=== PATIENT | female | born 2000 | race American Indian/Alaskan Native ===

== ENCOUNTER 2020-10-30 20:47 | Inpatient (IN) | payer BC, MEDICAID ==
--- NOTE | 2020-10-30 22:13 | History and Physical Report ---
History of Present Illness Date of examination: 10/30/20 Date of admission: 10/30/2020 Chief complaint: IOL for IUGR; del. recommended between 38-39 weeks by [facility] consultation History of present illness: EDC Confirmation: 11/08/2020 38+5 weeks today Past History : 1 Term Births: 0 Premature Births: 0 Living Children: 0 Para: 0 Mult. Births: 0 Prev : 0 Prev. attempt? 0 Aborta: 0 Elect. Ab: 0 Spont. Ab: 0 Ectopics: 0 Past Medical History: Negative Past Medical History Past Surgical History: negative Past Medical History Anesthesia Complications: negative Anemia: negative Autoimmune Disorder: negative Bleeding Disorder: negative Blood Transfusions: negative Breast Disease: negative Diabetes: negative Heart Disease: negative Hypertension: negative Hepatitis/Liver Disease: negative Kidney Disease/UTI: negative Neurologic/Epilepsy/Migraines: negative Phlebitis/Varicosities: negative Psychiatric: negative Pulmonary Disease/Asthma: negative Thyroid Disease: negative Hospitalizations: negative 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 of genital herpes: no Partner hx. of genital herpes: no Rash, Viral, or Febrile illness since last LMP? no Varicella/Chicken Pox Status: Previous Disease Genetic History Congenital Heart Defect: Mom: no Dad: no Edwar Disease: Mom: no Dad: no Thalassemia Mom: no Dad: no Neural Tube Defect Mom: no Dad: no Down's Syndrome Mom: no Dad: no Zack-Sachs Mom: no Dad: no Sickle Cell Disease/Trait Mom: no Dad: no Hemophilia Mom: no Dad: no Muscular Dystrophy Mom: no Dad: no Cystic Fibrosis Mom: no Dad: no [place] Chorea Mom: no Dad: no Mental Retardation Mom: no Dad: no Fragile X Mom: no Dad: no Other Genetic/Chromosomal Disorder Mom: no Dad: no Child w/other defect Mom: no Dad: no Enviromental Exposures Xray Exposure: no Medication, drug, or alcohol use since LMP: no Chemical/Other Exposure: no Exposure to Cat Liter: no Hx of Parvovirus (Fifth Disease): no Occupational Exposure to Children: none Active Medications: None Current Allergies (reviewed today): AMOXICILLIN (Critical) Past History Past Medical History: no pertinent history Past Surgical History: no surgical history [employer] History: trichomonas Family/Genetic History: other (see HPI) Social history: single, other (see HPI) - Obstetrical History Expected Date of Delivery: 11/08/20 Actual Gestation: 38 Week(s) 5 Day(s) : 1 Para: 0 Hx # Term Pregnancies: 0 Number of Pregnancies: 0 Spontaneous Abortions: 0 Induced : 0 Number of Living Children: 0 Medications and Allergies Allergies Allergy/AdvReac Type Severity Reaction Status Date / Time amoxicillin Allergy Severe Anaphylaxis Verified 10/30/20 22:12 Review of Systems All systems: negative Integumentary: other (scars on legs; pt reports old wounds from early in that have healed) - Vital Signs Vital signs: Vital Signs Pulse Pulse Ox 98 H 99 10/30/20 21:37 10/30/20 21:37 Temp Pulse Resp BP Pulse Ox 98.3 F 83 18 129/78 99 10/30/20 21:39 10/30/20 22:02 10/30/20 21:39 10/30/20 21:39 10/30/20 22:02 - Physical Exam Breasts: Positive: deferred Cardiovascular: Regular rate Lungs: Positive: Normal air movement Abdomen: Positive: normal appearance, soft Genitourinary (Female): Positive: normal external genitalia, normal perenium Vulva: both: normal Vagina: Positive: normal moisture Uterus: Positive: normal contour Anus/Rectum: Positive: normal perianal skin Extremities: Positive: normal - Obstetrical FHR: auscultation normal, category 1 Uterine Contraction Monitor Mode: Palpation Uterine Contraction Pattern: Absent Uterine Tone Measurement Phase: Resting Results All other labs normal. GBS NEGATIVE on 10/07/20 GC/CT/TRICH NEGATIVE on 10/28/20 Tests: (1) Profile I ([id number]) on 05/01/2020 Order Note: Clinical Information: [id number] LM HBsAg Screen Negative Negative *1 RPR Non Reactive Non Reactive *2 Rubella Antibodies, IgG 3.02 index Immune >0.99 *3 Non-immune <0.90 Equivocal 0.90 - 0.99 Immune >0.99 ABO Grouping B *4 Rh Factor Positive *5 Please note: Prior records for this patient's ABO / Rh type are not available for additional verification. Antibody Screen Negative Negative *6 WBC 6.4 x10E3/uL 3.4-10.8 *7 RBC 4.01 x10E6/uL 3.77-5.28 *8 Hemoglobin [L] 11.0 g/dL 11.1-15.9 *9 Hematocrit [L] 33.0 % 34.0-46.6 *10 MCV 82 fL 79-97 *11 MCH 27.4 pg 26.6-33.0 *12 MCHC 33.3 g/dL 31.5-35.7 *13 RDW 13.2 % 11.7-15.4 *14 Platelets 217 x10E3/uL 150-450 *15 Neutrophils 70 % Not Estab. *16 Lymphs 23 % Not Estab. *17 Monocytes 7 % Not Estab. *18 Eos 0 % Not Estab. *19 Basos 0 % Not Estab. *20 ! Immature Cells <No Reported Value> *21 Neutrophils (Absolute) 4.5 x10E3/uL 1.4-7.0 *22 Lymphs (Absolute) 1.5 x10E3/uL 0.7-3.1 *23 Monocytes(Absolute) 0.4 x10E3/uL 0.1-0.9 *24 Eos (Absolute) 0.0 x10E3/uL 0.0-0.4 *25 Baso (Absolute) 0.0 x10E3/uL 0.0-0.2 *26 ! Immature Granulocytes 0 % Not Estab. *27 ! Immature Grans (Abs) 0.0 x10E3/uL 0.0-0.1 *28 ! NRBC <No Reported Value> *29 Hematology Comments: <No Reported Value> *30 Tests: (2) 016486 7+Alc-Unbund ([id number]) ! Amphetamines, Urine Negative ng/mL Uonnut=0353 *31 Amphetamine test includes Amphetamine and Methamphetamine. Barbiturate Negative ng/mL Grarjr=127 *32 Benzodiazepines Negative ng/mL Wwetde=024 *33 Cannabinoid See Final Results ng/mL Cutoff=50 *34 Tests: (3) Cannabinoid Confirmation, Ur ([id number]) ! Cannabinoid [A] Positive Cutoff=50 *35 ! Carboxy THC GC/MS Conf 24 ng/mL Cutoff=15 *36 Tests: (4) 870771 7+Alc-Unbund (698130) ! Cocaine (Metab.) Negative ng/mL Mmefcc=936 *37 Opiates Negative ng/mL Ipdcyn=749 *38 Opiate test includes Codeine and Morphine only. Phencyclidine Negative ng/mL Cutoff=25 *39 ! Ethanol, Urine Negative % Cutoff=0.020 *40 Tests: (5) HIV Ag/Ab with Reflex ([id number]) HIV Screen 4th Generation wRfx Non Reactive Non Reactive *41 Tests: (6) HCV Ab w/Rflx to Verification ([id number]) ! HCV Ab <0.1 s/co ratio 0.0-0.9 *42 Tests: (7) Comment: ([id number]) ! Comment: [facility] *43 Non reactive HCV antibody screen is consistent with no HCV infection, unless recent infection is suspected or other evidence exists to indicate HCV infection. Tests: (8) Urine Culture, Routine ([id number]) Urine Culture, Routine Final report *44 Tests: (9) Result ([id number]) ! Result 1 No growth *45 Performed At: , [facility] [address] [id number] Duncan Wilson MD Phone: [phone] Performed At: , [facility] [address] [place], [place] [id number] Paola Stewart PhD Phone: [phone] Note: An exclamation chela (!) indicates a result that was not dispersed into the flowsheet. Document Creation Date: 05/07/2020 8:16 AM Assessment and Plan - Patient Problems (1) 38 weeks gestation of Current Visit: Yes Status: Acute (2) Encounter for induction of labor Current Visit: Yes Status: Acute Plan to address problem: SVE closed, soft, posterior Presentation cephalic and -1 station Plan cervidil for cervical ripening (3) IUGR (intrauterine growth restriction) Current Visit: Yes Status: Acute Plan to address problem: AMFM US on 10/17/2020: JERRY 18.2cm BPP 8/8 EFW 7% 2403g Plan to start IOL for IUGR as recommended Continuous monitoring Anticipate (4) echogenic intracardiac focus on ultrasound Current Visit: Yes Status: Acute
[2020-10-30] MEDS ORDERED: TERBUTALINE 1 MG/1 ML INJ SUB-Q PRN (22:52)
[2020-10-30] MEDS ORDERED: ePHEDrine SULFATE 50 MG/1 ML INJ IV PRN (22:52)
[2020-10-30] MEDS ORDERED: MINERAL OIL 30 ML ORAL LIQD PO PRN (22:52)
[2020-10-30] MEDS ORDERED: ONDANSETRON 4 MG/2 ML INJ IV PRN (22:52)
[2020-10-30] MEDS ORDERED: LIDOCAINE (2%) 20 MG/1 ML VIAL 20 ML MDV INFILTRATI ONE (22:52)
[2020-10-30] MEDS ORDERED: OXYTOCIN DRIP 30 UNITS/500 ML BAG IV SCH (23:00)
[2020-10-30 23:10] LABS: Hematocrit 33.8 % (30.3-42.9); Hemoglobin 11.4 gm/dl (10.1-14.3); Mean Corpuscular HGB Conc 34 % (30-34); Mean Corpuscular Volume 84 fl (79-97); Platelet Count 138 K/mm3 (140-440); Red Blood Count 4.01 M/mm3 (3.65-5.03); Red Cell Distribution Width 13.8 % (13.2-15.2)
[2020-10-30] MEDS: LACTATED RINGERS 1,000 ML IV SCH (23:49)
[2020-10-30] MEDS ORDERED: DINOPROSTONE 10 MG VAG SUPP VG ONE (23:52)
--- NOTE | 2020-10-31 04:30 | Event Note ---
Date: 10/31/20 Cervidil removed for uterine tachysystole. Pt received IVF Bolus and urinary hygiene; SVE remarkably unchanged. Plan discussed with pt and RN to reassess uterine pattern in one hour and continue IOL with new ripening agent. Pt declines pain interventions at this time and reports tolerable contractions. All questions addressed.
[2020-10-31] MEDS ORDERED: METHYLERGONOVINE MALEATE 0.2 MG/ML VIAL IM PRN (04:41)
[2020-10-31] MEDS ORDERED: OXYTOCIN 10 UNIT/1 ML INJ IM PRN (04:41)
[2020-10-31] MEDS ORDERED: miSOPROStol 200 MCG TAB PR PRN (04:41)
[2020-10-31] MEDS ORDERED: CARBOPROST TROMETHAMINE 250 MCG/1 ML INJ IM PRN (04:41)
[2020-10-31] MEDS ORDERED: OXYTOCIN DRIP 30 UNITS/500 ML BAG IV SCH (05:00)
--- NOTE | 2020-10-31 07:41 | Progress Note ---
Assessment and Plan patient resting on side, states she feels ctx but they are not unbearable at this time. reviewed pain management options, plan for pitocin today. pt declined SVE, advised she will need exam when she desires pain medications. FHT CAT 1. Plan of care reviewed with nursing staff. - Patient Problems (1) 38 weeks gestation of Current Visit: Yes Status: Acute (2) Encounter for induction of labor Current Visit: Yes Status: Acute (3) IUGR (intrauterine growth restriction) Current Visit: Yes Status: Acute Subjective - Subjective Date of service: 10/31/20 Principal diagnosis: IUP @ 38+6wks, IOL for IUGR Patient reports: movement normal, contractions, no loss of fluid, no vaginal bleeding Objective - Vital Signs Vital Signs: Vital Signs - 12hr 10/30/20 10/30/20 10/30/20 21:37 21:38 21:39 Temperature 98.3 F Pulse Rate 98 H 92 H 90 Respiratory 18 Rate Blood Pressure 129/78 Blood Pressure 129/78 [Left] O2 Sat by Pulse 99 99 Oximetry 10/30/20 10/30/20 10/30/20 21:42 21:47 21:52 Temperature Pulse Rate 79 79 89 Respiratory Rate Blood Pressure Blood Pressure [Left] O2 Sat by Pulse 99 98 100 Oximetry 10/30/20 10/30/20 10/30/20 21:57 22:02 22:07 Temperature Pulse Rate 80 83 81 Respiratory Rate Blood Pressure Blood Pressure [Left] O2 Sat by Pulse 99 99 99 Oximetry 10/30/20 10/30/20 10/30/20 22:12 22:17 22:22 Temperature Pulse Rate 85 83 78 Respiratory Rate Blood Pressure Blood Pressure [Left] O2 Sat by Pulse 99 99 99 Oximetry 10/30/20 10/30/20 10/30/20 22:27 22:32 22:37 Temperature Pulse Rate 79 81 80 Respiratory Rate Blood Pressure Blood Pressure [Left] O2 Sat by Pulse 99 99 99 Oximetry 10/30/20 10/30/20 10/30/20 22:42 22:47 22:52 Temperature Pulse Rate 98 H 87 102 H Respiratory Rate Blood Pressure Blood Pressure [Left] O2 Sat by Pulse 99 100 99 Oximetry 10/30/20 10/30/20 10/30/20 22:57 23:02 23:07 Temperature Pulse Rate 71 89 82 Respiratory Rate Blood Pressure Blood Pressure [Left] O2 Sat by Pulse 99 99 99 Oximetry 10/30/20 10/30/20 10/30/20 23:12 23:17 23:22 Temperature Pulse Rate 79 75 94 H Respiratory Rate Blood Pressure Blood Pressure [Left] O2 Sat by Pulse 99 99 100 Oximetry 10/30/20 10/30/20 10/30/20 23:27 23:32 23:37 Temperature Pulse Rate 81 75 90 Respiratory Rate Blood Pressure Blood Pressure [Left] O2 Sat by Pulse 99 99 99 Oximetry 10/30/20 10/30/20 10/30/20 23:42 23:47 23:54 Temperature Pulse Rate 75 85 87 Respiratory Rate Blood Pressure Blood Pressure [Left] O2 Sat by Pulse 99 100 97 Oximetry 10/30/20 10/31/20 10/31/20 23:59 00:04 00:09 Temperature Pulse Rate 73 86 74 Respiratory Rate Blood Pressure Blood Pressure [Left] O2 Sat by Pulse 100 99 99 Oximetry 10/31/20 10/31/20 10/31/20 00:14 00:19 00:24 Temperature Pulse Rate 82 85 78 Respiratory Rate Blood Pressure Blood Pressure [Left] O2 Sat by Pulse 100 99 99 Oximetry 10/31/20 10/31/20 10/31/20 00:29 00:34 00:39 Temperature Pulse Rate 78 77 90 Respiratory Rate Blood Pressure Blood Pressure [Left] O2 Sat by Pulse 98 99 99 Oximetry 10/31/20 10/31/20 10/31/20 00:44 00:49 00:54 Temperature Pulse Rate 82 72 78 Respiratory Rate Blood Pressure Blood Pressure [Left] O2 Sat by Pulse 98 99 98 Oximetry 10/31/20 10/31/20 10/31/20 00:59 01:02 01:04 Temperature Pulse Rate 74 81 72 Respiratory Rate Blood Pressure 103/61 Blood Pressure [Left] O2 Sat by Pulse 98 98 Oximetry 10/31/20 10/31/20 10/31/20 01:09 01:14 01:19 Temperature Pulse Rate 76 76 79 Respiratory Rate Blood Pressure Blood Pressure [Left] O2 Sat by Pulse 98 100 100 Oximetry 10/31/20 10/31/20 10/31/20 01:24 01:29 01:34 Temperature Pulse Rate 77 74 78 Respiratory Rate Blood Pressure Blood Pressure [Left] O2 Sat by Pulse 99 100 99 Oximetry 10/31/20 10/31/20 10/31/20 01:39 01:44 01:49 Temperature Pulse Rate 84 77 74 Respiratory Rate Blood Pressure Blood Pressure [Left] O2 Sat by Pulse 100 100 99 Oximetry 10/31/20 10/31/20 10/31/20 01:54 01:59 02:01 Temperature Pulse Rate 71 82 86 Respiratory Rate Blood Pressure 111/75 Blood Pressure [Left] O2 Sat by Pulse 100 99 Oximetry 10/31/20 10/31/20 10/31/20 02:04 02:09 02:14 Temperature Pulse Rate 77 71 82 Respiratory Rate Blood Pressure Blood Pressure [Left] O2 Sat by Pulse 99 100 100 Oximetry 10/31/20 10/31/20 10/31/20 02:15 02:19 02:24 Temperature Pulse Rate 80 80 75 Respiratory Rate Blood Pressure 131/77 Blood Pressure [Left] O2 Sat by Pulse 100 100 Oximetry 10/31/20 10/31/20 10/31/20 02:29 02:34 02:39 Temperature Pulse Rate 82 80 84 Respiratory Rate Blood Pressure Blood Pressure [Left] O2 Sat by Pulse 99 99 99 Oximetry 10/31/20 10/31/20 10/31/20 02:44 02:49 02:54 Temperature Pulse Rate 76 85 75 Respiratory Rate Blood Pressure Blood Pressure [Left] O2 Sat by Pulse 99 100 100 Oximetry 10/31/20 10/31/20 10/31/20 02:59 03:02 03:13 Temperature Pulse Rate 83 77 78 Respiratory Rate Blood Pressure 116/87 Blood Pressure [Left] O2 Sat by Pulse 100 100 Oximetry 10/31/20 10/31/20 10/31/20 03:18 03:23 03:28 Temperature Pulse Rate 81 79 88 Respiratory Rate Blood Pressure Blood Pressure [Left] O2 Sat by Pulse 99 100 99 Oximetry 10/31/20 10/31/20 10/31/20 03:33 03:38 03:43 Temperature Pulse Rate 83 83 85 Respiratory Rate Blood Pressure Blood Pressure [Left] O2 Sat by Pulse 100 100 100 Oximetry 10/31/20 10/31/20 10/31/20 03:48 03:53 03:58 Temperature Pulse Rate 74 81 82 Respiratory Rate Blood Pressure Blood Pressure [Left] O2 Sat by Pulse 100 99 99 Oximetry 10/31/20 10/31/20 10/31/20 04:02 04:03 04:11 Temperature 98.8 F Pulse Rate 77 80 85 Respiratory Rate Blood Pressure 113/61 Blood Pressure [Left] O2 Sat by Pulse 99 99 Oximetry 10/31/20 10/31/20 10/31/20 04:16 04:17 04:22 Temperature Pulse Rate 78 81 Respiratory Rate Blood Pressure Blood Pressure [Left] O2 Sat by Pulse 81 L 100 99 Oximetry 10/31/20 10/31/20 10/31/20 04:28 04:32 04:38 Temperature Pulse Rate 80 78 81 Respiratory Rate Blood Pressure Blood Pressure [Left] O2 Sat by Pulse 98 98 98 Oximetry 10/31/20 10/31/20 10/31/20 04:43 04:47 04:52 Temperature Pulse Rate 80 81 85 Respiratory Rate Blood Pressure Blood Pressure [Left] O2 Sat by Pulse 98 97 98 Oximetry 10/31/20 10/31/20 10/31/20 05:08 05:14 05:18 Temperature Pulse Rate 78 77 76 Respiratory Rate Blood Pressure Blood Pressure [Left] O2 Sat by Pulse 98 99 97 Oximetry 10/31/20 10/31/20 10/31/20 05:24 05:28 05:34 Temperature Pulse Rate 81 79 88 Respiratory Rate Blood Pressure Blood Pressure [Left] O2 Sat by Pulse 99 98 98 Oximetry 10/31/20 10/31/20 10/31/20 05:39 05:44 05:54 Temperature Pulse Rate 98 H 90 86 Respiratory Rate Blood Pressure Blood Pressure [Left] O2 Sat by Pulse 99 100 98 Oximetry 10/31/20 10/31/20 10/31/20 05:59 06:01 06:05 Temperature Pulse Rate 80 79 83 Respiratory Rate Blood Pressure 118/60 Blood Pressure [Left] O2 Sat by Pulse 98 98 Oximetry 10/31/20 10/31/20 10/31/20 06:10 06:14 06:20 Temperature Pulse Rate 79 81 76 Respiratory Rate Blood Pressure Blood Pressure [Left] O2 Sat by Pulse 100 100 100 Oximetry 10/31/20 10/31/20 10/31/20 06:25 06:30 06:35 Temperature Pulse Rate 80 95 H 85 Respiratory Rate Blood Pressure Blood Pressure [Left] O2 Sat by Pulse 99 98 98 Oximetry 10/31/20 10/31/20 10/31/20 06:40 06:45 06:50 Temperature Pulse Rate 109 H 104 H 96 H Respiratory Rate Blood Pressure Blood Pressure [Left] O2 Sat by Pulse 97 96 96 Oximetry 10/31/20 10/31/20 10/31/20 06:55 07:00 07:02 Temperature Pulse Rate 100 H 103 H 99 H Respiratory Rate Blood Pressure 107/51 Blood Pressure [Left] O2 Sat by Pulse 96 97 Oximetry 10/31/20 10/31/20 10/31/20 07:05 07:10 07:15 Temperature Pulse Rate 100 H 97 H 97 H Respiratory Rate Blood Pressure Blood Pressure [Left] O2 Sat by Pulse 96 96 97 Oximetry 10/31/20 10/31/20 10/31/20 07:20 07:25 07:30 Temperature Pulse Rate 104 H 96 H 96 H Respiratory Rate Blood Pressure Blood Pressure [Left] O2 Sat by Pulse 97 98 97 Oximetry 10/31/20 10/31/20 07:35 07:40 Temperature Pulse Rate 100 H 88 Respiratory Rate Blood Pressure Blood Pressure [Left] O2 Sat by Pulse 96 99 Oximetry - Exam Breasts: normal Cardiovascular: Regular rate Lungs: Normal air movement Abdomen: Present: normal appearance, soft Vulva: both: normal Uterus: Present: normal FHR: category 1 Uterine Contraction Monitor Mode: External Uterine Contraction Pattern: Irregular Uterine Tone Measurement Phase: Contraction Uterine Contraction Intensity: Mild Extremities: normal Deep Tendon Reflex Grade: Normal +2 - Labs Labs: Abnormal Labs 10/30/20 22:28 Plt Count 138 L Laboratory Results - last 24 hr 10/30/20 10/30/20 22:28 22:28 WBC 7.4 RBC 4.01 Hgb 11.4 Hct 33.8 MCV 84 MCH 28 MCHC 34 RDW 13.8 Plt Count 138 L Blood Type B POSITIVE Antibody Screen Negative
[2020-10-31] MEDS: LACTATED RINGERS 1,000 ML IV SCH ×2 (11:41→16:16)
[2020-10-31] MEDS ORDERED: fentaNYL 100 MCG/2 ML INJ ONE (15:56)
--- NOTE | 2020-10-31 16:01 | Progress Note ---
Assessment and Plan patient asking for epidural, SVE done with significant change. CTX palpated moderate to strong with soft resting tone. IVF open for bolus, rn to give dose of fentanyl until epidural can be placed. Pt's mother at bedside, very supportive. - Patient Problems (1) 38 weeks gestation of Current Visit: Yes Status: Acute (2) Encounter for induction of labor Current Visit: Yes Status: Acute (3) IUGR (intrauterine growth restriction) Current Visit: Yes Status: Acute Subjective - Subjective Date of service: 10/31/20 Principal diagnosis: IUP @ 38+6wks, IOL for IUGR Patient reports: loss of fluid, movement normal, contractions, no vaginal bleeding Objective - Vital Signs Vital Signs: Vital Signs - 12hr 10/31/20 10/31/20 10/31/20 04:02 04:03 04:11 Temperature 98.8 F Pulse Rate 77 80 85 Respiratory Rate Blood Pressure 113/61 Blood Pressure [Left] O2 Sat by Pulse 99 99 Oximetry 10/31/20 10/31/20 10/31/20 04:16 04:17 04:22 Temperature Pulse Rate 78 81 Respiratory Rate Blood Pressure Blood Pressure [Left] O2 Sat by Pulse 81 L 100 99 Oximetry 10/31/20 10/31/20 10/31/20 04:28 04:32 04:38 Temperature Pulse Rate 80 78 81 Respiratory Rate Blood Pressure Blood Pressure [Left] O2 Sat by Pulse 98 98 98 Oximetry 10/31/20 10/31/20 10/31/20 04:43 04:47 04:52 Temperature Pulse Rate 80 81 85 Respiratory Rate Blood Pressure Blood Pressure [Left] O2 Sat by Pulse 98 97 98 Oximetry 10/31/20 10/31/20 10/31/20 05:08 05:14 05:18 Temperature Pulse Rate 78 77 76 Respiratory Rate Blood Pressure Blood Pressure [Left] O2 Sat by Pulse 98 99 97 Oximetry 10/31/20 10/31/20 10/31/20 05:24 05:28 05:34 Temperature Pulse Rate 81 79 88 Respiratory Rate Blood Pressure Blood Pressure [Left] O2 Sat by Pulse 99 98 98 Oximetry 10/31/20 10/31/20 10/31/20 05:39 05:44 05:54 Temperature Pulse Rate 98 H 90 86 Respiratory Rate Blood Pressure Blood Pressure [Left] O2 Sat by Pulse 99 100 98 Oximetry 10/31/20 10/31/20 10/31/20 05:59 06:01 06:05 Temperature Pulse Rate 80 79 83 Respiratory Rate Blood Pressure 118/60 Blood Pressure [Left] O2 Sat by Pulse 98 98 Oximetry 10/31/20 10/31/20 10/31/20 06:10 06:14 06:20 Temperature Pulse Rate 79 81 76 Respiratory Rate Blood Pressure Blood Pressure [Left] O2 Sat by Pulse 100 100 100 Oximetry 10/31/20 10/31/20 10/31/20 06:25 06:30 06:35 Temperature Pulse Rate 80 95 H 85 Respiratory Rate Blood Pressure Blood Pressure [Left] O2 Sat by Pulse 99 98 98 Oximetry 10/31/20 10/31/20 10/31/20 06:40 06:45 06:50 Temperature Pulse Rate 109 H 104 H 96 H Respiratory Rate Blood Pressure Blood Pressure [Left] O2 Sat by Pulse 97 96 96 Oximetry 10/31/20 10/31/20 10/31/20 06:55 07:00 07:02 Temperature Pulse Rate 100 H 103 H 99 H Respiratory Rate Blood Pressure 107/51 Blood Pressure [Left] O2 Sat by Pulse 96 97 Oximetry 10/31/20 10/31/20 10/31/20 07:05 07:10 07:15 Temperature Pulse Rate 100 H 97 H 97 H Respiratory Rate Blood Pressure Blood Pressure [Left] O2 Sat by Pulse 96 96 97 Oximetry 10/31/20 10/31/20 10/31/20 07:20 07:25 07:30 Temperature Pulse Rate 104 H 96 H 96 H Respiratory Rate Blood Pressure Blood Pressure [Left] O2 Sat by Pulse 97 98 97 Oximetry 10/31/20 10/31/20 10/31/20 07:35 07:40 07:45 Temperature Pulse Rate 100 H 88 111 H Respiratory Rate Blood Pressure Blood Pressure [Left] O2 Sat by Pulse 96 99 99 Oximetry 10/31/20 10/31/20 10/31/20 07:55 08:00 08:01 Temperature Pulse Rate 101 H 101 H 99 H Respiratory Rate Blood Pressure 110/59 Blood Pressure [Left] O2 Sat by Pulse 99 99 Oximetry 10/31/20 10/31/20 10/31/20 08:05 08:07 08:09 Temperature 98.5 F Pulse Rate 104 H 98 H 101 H Respiratory 16 Rate Blood Pressure Blood Pressure 110/59 [Left] O2 Sat by Pulse 99 98 99 Oximetry 10/31/20 10/31/20 10/31/20 08:15 08:20 08:25 Temperature Pulse Rate 98 H 95 H 91 H Respiratory Rate Blood Pressure Blood Pressure [Left] O2 Sat by Pulse 99 99 99 Oximetry 10/31/20 10/31/20 10/31/20 08:30 08:35 08:40 Temperature Pulse Rate 95 H 96 H 93 H Respiratory Rate Blood Pressure Blood Pressure [Left] O2 Sat by Pulse 100 99 97 Oximetry 10/31/20 10/31/20 10/31/20 08:45 08:50 08:55 Temperature Pulse Rate 106 H 112 H 90 Respiratory Rate Blood Pressure Blood Pressure [Left] O2 Sat by Pulse 98 99 97 Oximetry 10/31/20 10/31/20 10/31/20 09:00 09:02 09:05 Temperature Pulse Rate 100 H 98 H 102 H Respiratory Rate Blood Pressure 120/73 Blood Pressure [Left] O2 Sat by Pulse 98 99 Oximetry 10/31/20 10/31/20 10/31/20 09:10 09:15 10:43 Temperature Pulse Rate 89 96 H 83 Respiratory Rate Blood Pressure 127/70 Blood Pressure [Left] O2 Sat by Pulse 98 98 Oximetry 10/31/20 10/31/20 10/31/20 10:52 10:57 11:02 Temperature Pulse Rate 91 H 79 79 Respiratory Rate Blood Pressure Blood Pressure [Left] O2 Sat by Pulse 97 97 97 Oximetry 10/31/20 10/31/20 10/31/20 11:07 11:14 11:19 Temperature Pulse Rate 90 87 86 Respiratory Rate Blood Pressure 111/70 Blood Pressure [Left] O2 Sat by Pulse 97 98 98 Oximetry 10/31/20 10/31/20 10/31/20 11:24 11:29 11:34 Temperature Pulse Rate 76 79 88 Respiratory Rate Blood Pressure Blood Pressure [Left] O2 Sat by Pulse 98 98 98 Oximetry 10/31/20 10/31/20 10/31/20 11:39 11:44 11:45 Temperature Pulse Rate 86 86 79 Respiratory Rate Blood Pressure 113/75 Blood Pressure [Left] O2 Sat by Pulse 98 97 Oximetry 10/31/20 10/31/20 10/31/20 11:49 11:54 11:59 Temperature Pulse Rate 79 80 80 Respiratory Rate Blood Pressure Blood Pressure [Left] O2 Sat by Pulse 97 97 98 Oximetry 10/31/20 10/31/20 10/31/20 12:04 12:09 12:21 Temperature Pulse Rate 79 80 78 Respiratory Rate Blood Pressure Blood Pressure [Left] O2 Sat by Pulse 99 98 99 Oximetry 10/31/20 10/31/20 10/31/20 12:26 12:31 12:36 Temperature Pulse Rate 89 75 78 Respiratory Rate Blood Pressure Blood Pressure [Left] O2 Sat by Pulse 98 98 97 Oximetry 10/31/20 10/31/20 10/31/20 12:41 12:44 12:46 Temperature Pulse Rate 87 78 81 Respiratory Rate Blood Pressure 120/70 Blood Pressure [Left] O2 Sat by Pulse 97 99 Oximetry 10/31/20 10/31/20 10/31/20 12:51 12:56 13:01 Temperature Pulse Rate 85 77 87 Respiratory Rate Blood Pressure Blood Pressure [Left] O2 Sat by Pulse 98 98 98 Oximetry 10/31/20 10/31/20 10/31/20 13:06 13:11 13:14 Temperature Pulse Rate 81 75 85 Respiratory Rate Blood Pressure 135/71 Blood Pressure [Left] O2 Sat by Pulse 98 100 Oximetry 10/31/20 10/31/20 10/31/20 13:23 13:28 13:33 Temperature Pulse Rate 102 H 82 83 Respiratory Rate Blood Pressure Blood Pressure [Left] O2 Sat by Pulse 98 99 99 Oximetry 10/31/20 10/31/20 10/31/20 13:38 13:43 13:44 Temperature Pulse Rate 77 78 86 Respiratory Rate Blood Pressure 130/75 Blood Pressure [Left] O2 Sat by Pulse 100 100 Oximetry 10/31/20 10/31/20 10/31/20 13:48 13:53 13:58 Temperature Pulse Rate 78 102 H 79 Respiratory Rate Blood Pressure Blood Pressure [Left] O2 Sat by Pulse 99 99 99 Oximetry 10/31/20 10/31/20 10/31/20 14:03 14:08 14:13 Temperature Pulse Rate 83 88 89 Respiratory Rate Blood Pressure Blood Pressure [Left] O2 Sat by Pulse 99 99 99 Oximetry 10/31/20 10/31/20 10/31/20 14:15 14:18 14:23 Temperature Pulse Rate 87 85 86 Respiratory Rate Blood Pressure 129/75 Blood Pressure [Left] O2 Sat by Pulse 99 99 Oximetry 10/31/20 10/31/20 10/31/20 14:28 14:33 14:38 Temperature Pulse Rate 94 H 107 H 84 Respiratory Rate Blood Pressure Blood Pressure [Left] O2 Sat by Pulse 100 99 99 Oximetry 10/31/20 10/31/20 10/31/20 14:43 14:45 14:48 Temperature Pulse Rate 100 H 86 88 Respiratory Rate Blood Pressure 130/72 Blood Pressure [Left] O2 Sat by Pulse 99 99 Oximetry 10/31/20 10/31/20 10/31/20 14:53 14:58 15:03 Temperature Pulse Rate 93 H 78 89 Respiratory Rate Blood Pressure Blood Pressure [Left] O2 Sat by Pulse 99 99 97 Oximetry 10/31/20 10/31/20 10/31/20 15:08 15:13 15:14 Temperature Pulse Rate 98 H 92 H 83 Respiratory Rate Blood Pressure 129/73 Blood Pressure [Left] O2 Sat by Pulse 99 100 Oximetry 10/31/20 10/31/20 10/31/20 15:18 15:23 15:28 Temperature Pulse Rate 87 85 90 Respiratory Rate Blood Pressure Blood Pressure [Left] O2 Sat by Pulse 100 97 99 Oximetry 10/31/20 10/31/20 10/31/20 15:33 15:34 15:38 Temperature Pulse Rate 86 104 H 88 Respiratory Rate Blood Pressure Blood Pressure [Left] O2 Sat by Pulse 98 89 98 Oximetry 10/31/20 10/31/20 10/31/20 15:40 15:43 15:45 Temperature Pulse Rate 87 101 H 91 H Respiratory Rate Blood Pressure 134/75 Blood Pressure [Left] O2 Sat by Pulse 94 100 90 Oximetry 10/31/20 10/31/20 15:48 15:53 Temperature Pulse Rate 103 H 108 H Respiratory Rate Blood Pressure Blood Pressure [Left] O2 Sat by Pulse 99 97 Oximetry - Exam Cardiovascular: Regular rate Lungs: Normal air movement Abdomen: Present: normal appearance, soft Vulva: both: normal Uterus: Present: normal, fundal height above umbilicus FHR: category 1 Uterine Contraction Monitor Mode: External Cervical Dilatation: 4.5 (SROM - clear) Cervical Effacement Percentage: 100 station: 0 Uterine Contraction Frequency (min): 1.5-2 Uterine Contraction Duration: 60 Uterine Contraction Pattern: Regular Uterine Tone Measurement Phase: Contraction Uterine Contraction Intensity: Strong/Firm Extremities: normal Deep Tendon Reflex Grade: Normal +2 - Labs Labs: Abnormal Labs 10/30/20 22:28 Plt Count 138 L Laboratory Results - last 24 hr 10/30/20 10/30/20 10/31/20 22:28 22:28 09:25 WBC 7.4 RBC 4.01 Hgb 11.4 Hct 33.8 MCV 84 MCH 28 MCHC 34 RDW 13.8 Plt Count 138 L Coronavirus (PCR) Negative Blood Type B POSITIVE Antibody Screen Negative
[2020-10-31] MEDS ORDERED: LACTATED RINGERS 250 ML IV SOLN IV ONE (16:24)
[2020-10-31] MEDS ORDERED: ePHEDrine SULFATE 50 MG/1 ML INJ IV PRN (16:24)
[2020-10-31] MEDS ORDERED: NALOXONE 2 MG/2 ML INJ IV PRN (16:24)
[2020-10-31] MEDS ORDERED: diphenhydrAMINE 50 MG/ML VIAL IV PRN (16:24)
[2020-10-31] MEDS ORDERED: NalbUPHINE 10 MG/1 ML INJ IV PRN (16:24)
[2020-10-31] MEDS ORDERED: fentaNYL 100 MCG/2 ML INJ IV ONE (17:00)
[2020-10-31] MEDS ORDERED: fentaNYL-BUPIV 2 MCG/ML-0.125% 200 MCG/100 ML BAG EPIDURAL SCH (17:00)
--- NOTE | 2020-10-31 17:00 | Procedure Note ---
OB Delivery Note - Delivery Date of Delivery: 10/31/20 ([place]) Mobile Web Application Developer: FLORI SCHULTZ Estimated blood loss: 200cc - Vaginal Delivery presentation: vertex Delivery position: OA (HOWARD) Intrapartum events: none Delivery induction: cervidil Delivery augmentation: pitocin Delivery monitor: external FHT, external uterine Route of delivery: Delivery placenta: spontaneous Delivery cord: 3 umbilical vessels Episiotomy: none Delivery laceration: none Anesthesia: intravenous Delivery comments: Male baby born HOWARD over intact perineum, baby placed on maternal abdomen for skin to skin. 3 vessel cord clamped and cut after cessation of pulsation. Placenta delivered intact and complete. Sent to pathology d/t IUGR. no lacerati ons to repair. EBL 200. Apgars 8/9. all counts correct, mother and baby LDR stable. - Infant A at 1 minute: 8 at 5 minutes: 9 Infant Gender: Male (6#0)
[2020-10-31] MEDS ORDERED: diphenhydrAMINE 25 MG CAP PO PRN (19:21)
[2020-10-31] MEDS ORDERED: MAGNESIUM HYDROXIDE (MOM) ORAL LIQD UDC PO PRN (19:21)
[2020-10-31] MEDS ORDERED: WITCH HAZEL/ GLYCERIN PAD TP PRN (19:21)
[2020-10-31] MEDS ORDERED: LANOLIN/ZINC/DIMETHICONE (LANSINOH) 7 GM TP PRN (19:21)
[2020-10-31] MEDS ORDERED: PROMETHAZINE 25 MG TAB PO PRN (19:21)
[2020-10-31] MEDS ORDERED: ACETAMINOPHEN 325 MG TAB PO PRN (19:21)
[2020-10-31] MEDS: IBUPROFEN 600 MG TAB PO SCH (19:56)
[2020-11-01 05:07] LABS: Hematocrit 30.9 % (30.3-42.9); Hemoglobin 10.3 gm/dl (10.1-14.3)
[2020-11-01] MEDS: IBUPROFEN 600 MG TAB PO SCH ×3 (05:23→21:59)
[2020-11-01] MEDS ORDERED: TETANUS,DIPH,PERTUSS(ACELL) VACCINE 0.5 ML SYRINGE IM ONE (06:00)
[2020-11-01] MEDS ORDERED: PRENATAL VIT27-FE FUMARATE-FOLIC ACID VIT TAB PO SCH (10:00)
--- NOTE | 2020-11-01 12:14 | Discharge Summary ---
Providers - Providers Date of Admission: 10/30/20 22:52 Date of discharge: 11/01/20 (pt desires discharge home) Attending physician: CHRISTINE GREENBERG 10/31/20 19:21 Consult to Assistant Store Manager Trainee [CONS] Routine Reason For Exam: assistance with , SNS Primary care physician: CHRISTINE GREENBERG Hospitalization Reason for admission: induction of labor, IUP at term Delivery: Episiotomy: none Laceration: none Other procedures: none complications: none Discharge diagnosis: IUP at term delivered [place] baby: male Condition at discharge: Good Disposition: DC-01 TO HOME OR SELFCARE - Discharge Diagnoses (1) (normal spontaneous vaginal delivery) Status: Acute Plan - Discharge Medications Prescriptions: Lidocain2.5%/Prilocai2.5% [Emla] 5 gm TP ONCE PRN #1 tube PRN Reason: Pain Ibuprofen [Motrin 800 MG tab] 800 mg PO Q8HR PRN #30 tablet PRN Reason: Pain - Provider Discharge Summary Activity: routine, no sex for 6 weeks, no heavy lifting 4 weeks, no strenuous exercise Diet: routine Instructions: routine Additional instructions: [] Smoking cessation referral if applicable(refer to patient education folder for contact #) [] Refer to [facility]'s [facility] Booklet Call your doctor immediately for: * Fever > 100.5 * Heavy vaginal bleeding ( >1 pad per hour) * Severe persistent headache * Shortness of breath * Reddened, hot, painful area to leg or breast * Drainage or odor from incision. * Keep incision clean and dry at all times and follow doctor's instructions regarding bathing/showering Congratulations!! Please call [phone] and schedule your 's circumcision within 1 week. Please also call and schedule your visit within 4-6 weeks. Please leaf size picker your prescriptions for circumcision and bring them to your appointment. Do NOT administer prescriptions to . - Follow up plan Follow up: CHRISTINE GREENBERG MD [Primary Care Provider] - 7 Days
--- NOTE | 2020-11-01 12:15 | Progress Note ---
Assessment and Plan Pt sitting up performing ADL's, denies complaints today. Lochia scant and fundus firm; H/H stable . Reports ambulating, , hydrating, eating, and voiding without difficulty. Encouraged pathway. Pt desires OCP's for PP control and circumcision for . POC reviewed with pt and family member. Pt desires discharge home today instead of tomorrow am. Discharge precautions given. - Patient Problems (1) echogenic intracardiac focus on ultrasound Current Visit: No Status: Acute Plan to address problem: No further evaluations needed per [facility] office consult report 08/20/20 (2) (normal spontaneous vaginal delivery) Current Visit: Yes Status: Acute Plan to address problem: continue pathway Pt desires discharge home after 24hrs post delivery Subjective - Subjective Date of service: 11/01/20 Principal diagnosis: on 10/31 Patient reports: appetite normal, voiding normally, pain well controlled, ambulating normally [place]: doing well Objective - Vital Signs Latest vital signs: Vital Signs Temp Pulse Resp BP BP Pulse Ox 11/01/20 08:12 98.1 F 83 18 111/68 97 11/01/20 04:10 97.9 F 89 18 110/76 98 11/01/20 01:37 98.1 F 93 H 18 112/62 97 10/31/20 21:25 97.7 F 95 H 18 118/74 97 10/31/20 19:06 98.7 F 87 16 114/61 99 10/31/20 18:08 90 99 10/31/20 18:03 106 H 99 10/31/20 18:02 95 H 126/79 10/31/20 17:58 85 99 10/31/20 17:53 90 98 10/31/20 17:48 86 99 10/31/20 17:47 88 123/69 10/31/20 17:43 90 99 10/31/20 17:38 87 99 10/31/20 17:33 83 99 10/31/20 17:32 90 136/75 10/31/20 17:28 97 H 100 10/31/20 17:23 87 99 10/31/20 17:18 85 98 10/31/20 17:17 88 121/57 10/31/20 17:13 86 98 10/31/20 17:08 96 H 99 10/31/20 17:03 90 99 05 16:58 97 H 99 05 16:53 93 H 99 05 16:48 82 99 0514 16:44 83 127/63 05 16:43 87 99 05 16:38 101 H 100 0514 16:33 89 99 0514 16:28 110 H 100 05 16:23 78 99 05 16:18 91 H 98 05 16:17 81 92 05 16:14 82 126/71 05 16:13 79 95 05 16:12 80 90 05 16:08 76 97 05 16:06 85 94 10/31/20 16:03 83 24 99 10/31/20 15:58 96 H 100 10/31/20 15:53 108 H 97 10/31/20 15:48 103 H 99 10/31/20 15:45 91 H 134/75 90 05 15:43 101 H 100 10/31/20 15:40 87 94 05 15:38 88 98 05 15:34 104 H 89 05 15:33 86 98 10/31/20 15:28 90 99 10/31/20 15:23 85 97 10/31/20 15:18 87 100 05 15:14 83 129/73 05 15:13 92 H 100 10/31/20 15:08 98 H 99 10/31/20 15:03 89 97 05 14:58 78 99 05 14:53 93 H 99 10/31/20 14:48 88 99 0514 14:45 86 130/72 0514 14:43 100 H 99 05 14:38 84 99 0514 14:33 107 H 99 05 14:28 94 H 100 10/31/20 14:23 86 99 0514 14:18 85 99 0514 14:15 87 129/75 0514 14:13 89 99 0514 14:08 88 99 0514 14:03 83 99 10/31/20 13:58 79 99 10/31/20 13:53 102 H 99 10/31/20 13:48 78 99 10/31/20 13:44 86 130/75 10/31/20 13:43 78 100 10/31/20 13:38 77 100 10/31/20 13:33 83 99 10/31/20 13:28 82 99 10/31/20 13:23 102 H 98 10/31/20 13:14 85 135/71 10/31/20 13:11 75 100 10/31/20 13:06 81 98 10/31/20 13:01 87 98 10/31/20 12:56 77 98 10/31/20 12:51 85 98 10/31/20 12:46 81 99 10/31/20 12:44 78 120/70 10/31/20 12:41 87 97 10/31/20 12:36 78 97 10/31/20 12:31 75 98 10/31/20 12:26 89 98 10/31/20 12:21 78 99 10/31/20 12:09 80 98 10/31/20 12:04 79 99 10/31/20 11:59 80 98 10/31/20 11:54 80 97 10/31/20 11:49 79 97 10/31/20 11:45 79 113/75 10/31/20 11:44 86 97 10/31/20 11:39 86 98 10/31/20 11:34 88 98 10/31/20 11:29 79 98 10/31/20 11:24 76 98 10/31/20 11:19 86 98 10/31/20 11:14 87 111/70 98 10/31/20 11:07 90 97 10/31/20 11:02 79 97 10/31/20 10:57 79 97 10/31/20 10:52 91 H 97 10/31/20 10:43 83 127/70 Intake and Output 10/31/20 11/01/20 11/01/20 23:59 07:59 15:59 Intake Total 821.750 240 240 Output Total 300 700 750 Balance 521.750 460 -171 Intake: IV 581.750 Lactated Ringers 1,000 ml 572.917 @ 125 mls/hr IV DIRECT [facility] Rx#:[id number] PITOCin/NS 30 UNIT/500ML 8.833 30 units In 500 ml @ 2 mls/hr IV TITR [facility] Rx#: [id number] Oral 240 240 Intake, Free Water 240 Output: Urine 300 700 750 Void 300 700 750 Other: Total, Intake Amount 120 120 Total, Output Amount 300 300 750 # Voids Void 1 1 Estimated Blood Loss 200 - Exam Breasts: Present: normal Cardiovascular: Present: Regular rate Lungs: Present: Normal air movement Abdomen: Present: normal appearance, soft Uterus: Present: normal, firm, fundal height below umbilicus Extremities: Present: normal
[2020-11-02] MEDS: IBUPROFEN 600 MG TAB PO SCH ×2 (05:25)
--- NOTE | 2020-11-02 07:56 | Event Note ---
Date: 11/02/20 Phone call received from RN last night: to stay overnight due to jaundice levels. Pt remains stable and desires d/c home this am with . Order placed.
[2020-11-02 09:17] VITALS: BP 115/66
== END 2020-11-02 09:41 | disposition home or self-care (01) | DRG 807 ==
LOC: TRG 20:47 → LD 20:51 → TRG 22:52 → OB 10-31 18:38
PROVIDERS: ADMIT Obstetrics & Gynecology; ATTEND Obstetrics & Gynecology
PROC: 3E0P7VZ Introduction of Hormone into Female Reproductive, Via Natural or Artificial Opening (ICD-10-PCS; principal; 2020-10-31)
PROC: 10E0XZZ Delivery of Products of Conception, External Approach (ICD-10-PCS; 2020-10-31)
DX: O36.5930 Maternal care for other known or suspected poor fetal growth, third trimester, not applicable or unspecified (principal); Z37.0 Single live birth; Z3A.38 38 weeks gestation of pregnancy; Z20.822 Contact with and (suspected) exposure to COVID-19
CPT/HCPCS: 36415; 59200; 85014; 85018; 85027; 86850; 86900; 86901; 88307; G0378; A6250; J2590; J3010; J3105; J7120; U0003